=== PATIENT | male | born 1960 | race Caucasian/White ===

== ENCOUNTER 2016-09-22 19:12 | Emergency (ER) | payer BC, OTHER ==
[2016-09-22] MEDS ORDERED: Rocephin 1000 MG INJ IM ONE (19:52)
[2016-09-22] MEDS ORDERED: Robitussin AC Syrup Unit Dose Cup PO PRN (19:52)
--- NOTE | 2016-09-22 19:58 | ERPHSYRPT ---
- History of Present Illness Time Seen by Provider: 09/22/16 19:47 Source: patient Exam Limitations: no limitations Patient Subjective Stated Complaint: pt has been sick since saturday with fever off and on and a deep non productive cough -co pain in ribs with the cough he has been taking tylenol Triage Nursing Assessment: pt is awake and alert and able to answer questions - during triage he has a deep hard cough Physician History: FOR THE PAST 4 DAYS PT HAS HAD A NON-PRODUCTIVE COUGH, GENERALIZED WEAKNESS AND FEVER; SINCE YESTERDAY A RUNNY NOSE AND DECREASED APPETITE. Allergies/Adverse Reactions: No Known Drug Allergies Allergy (Unverified 09/22/16 19:30) Hx Tetanus, Diphtheria Vaccination/Date Given: No Hx Influenza Vaccination/Date Given: No Hx Pneumococcal Vaccination/Date Given: No Immunizations Up to Date: No - Review of Systems Constitutional: Fever, Weakness (GENERALIZED) Ears, Nose, & Throat: Nose Discharge Respiratory: Cough Abdominal/Gastrointestinal: Appetite Changes (DECREASED) All Other Systems: Reviewed and Negative - Past Medical History Pertinent Past Medical History: Yes Other Medical History: hep c hemaphelia - Past Surgical History Past Surgical History: Yes - Social History Smoking Status: Never smoker Exposure to second hand smoke: No Drug Use: none Patient Lives Alone: No - Nursing Vital Signs Nursing Vital Signs: Initial Vital Signs Temperature 99.2 F Temperature Source Oral Pulse Rate 96 Respiratory Rate 16 Blood Pressure [Right Arm] 145/73 Pain Intensity 3 - Physical Exam General Appearance: alert Eye Exam: PERRL/EOMI Ears, Nose, Throat Exam: moist mucous membranes, pharyngeal erythema, other ( CERUMEN OCCLUSION OF BOTH EARS) Neck Exam: normal inspection Respiratory Exam: other (BRONCHIAL BREATH SOUNDS OVER ALL ORTEGA.) Cardiovascular Exam: normal heart sounds Gastrointestinal/Abdomen Exam: soft, normal bowel sounds Back Exam: normal range of motion Extremity Exam: normal inspection Neurologic Exam: alert, cooperative Skin Exam: warm, dry SpO2 Interpretation: normal SpO2: 94 Oxygen Delivery: Room Air - Course Nursing assessment & vital signs reviewed: Yes - Departure Time of Disposition: 19:58 Departure Disposition: Home Clinical Impression: BRONCHITIS, PHARYNGITIS Condition: Stable Critical Care Time: No Instructions: Bronchitis, Pharyngitis/Tonsillopharyngitis -- Adult Additional Instructions: FOLLOW UP WITH PRIVATE DOCTOR TOMORROW. Prescriptions: Guaifenesin/Codeine Phosphate [Robitussin AC Syrup] 10 ml PO Q4H PRN PRN #120 ml PRN Reason: Cough Azithromycin 250 mg [Zithromax 250 MG TABLET] 250 mg PO ZPACK #6 tablet
[2016-09-22] MEDS ORDERED: XYLOCAINE 1% HCL 20 ML MDV ONE (20:08)
[2016-09-22] MEDS ORDERED: Robitussin AC Syrup Unit Dose Cup ONE (20:08)
[2016-09-22] MEDS ORDERED: Rocephin 1000 MG INJ ONE (20:08)
[2016-09-22 20:32] VITALS: BP 166/71; PULSE 80; O2SAT 95
== END 2016-09-22 20:32 | disposition home or self-care (01) ==
LOC: ED 19:12
DX: J40 Bronchitis, not specified as acute or chronic (principal); J02.9 Acute pharyngitis, unspecified; R50.9 Fever, unspecified
CPT/HCPCS: 96372; 99282; 99284; J0696; A9270-GY